=== PATIENT | male | born 1930 | race Caucasian/White ===

== ENCOUNTER → 2018-04-03 | Outpatient (CLI) | payer MEDICARE ==
[~2018-04-03] VITALS: Ht 165.1 cm; Wt 79.4 kg
[~2018-04-03] MED LIST: DEXAMETHASONE 10 MG/ML (DECADRON) 1 ML VIAL ONE
[2018-04-03 15:27] VITALS: BP 150/78
[2018-04-03 15:50] VITALS: BP 162/76
--- NOTE | 2018-04-03 19:03 | OPERATIVE REPORT ---
DATE OF SERVICE: 04/03/2018 DIAGNOSIS: Cervical spondylosis. PROCEDURE: Fluoroscopic-guided facet medial branch block, right. PROCEDURE IN DETAIL: After obtaining informed consent from the patient, the patient's chart was reviewed. The patient was then brought to the procedure room and placed in prone position. Time-out was performed. The area and the right neck, upper back, lower back was prepped with antiseptic solution and under fluoroscopic guidance, the patient's C4, C5, C6, and C7 area was examined and the facet joints listed above were identified. C4, C5, C6, and C7 was identified under fluoroscopy. A 22-gauge 3-1/2 inch spinal needle was inserted and advanced under fluoroscopy down to the area where the pedicle and the transverse process meet and approximately 1 mL of 1% lidocaine was injected at this level. This was then repeated for the remainder of the levels stated above. Afterwards, the needle was removed. Band-Aids were applied to all sites and the patient tolerated the procedure well and was taken to the recovery area in stable condition. COMPLICATIONS: None. Job ID: [id number] DocumentID: [id number] Dictated Date: 04/03/2018 15:47:23 Cost Coordinator Date: 04/03/2018 19:03:25 Dictated By: ELO SHELBY DO
== END ==
LOC: CARD 15:10
PROVIDERS: ATTEND Pain Medicine Interventional Pain Medicine
DX: M47.812 Spondylosis without myelopathy or radiculopathy, cervical region (principal)
CPT/HCPCS: 64490; 64491; 64492

== ENCOUNTER 2019-01-11 11:33 | Emergency (ER) | payer MEDICARE ==
[~2019-01-11] VITALS: Ht 162.6 cm; Wt 81.6 kg
[2019-01-11 11:38] VITALS: BP 134/75
--- NOTE | 2019-01-11 11:46 | ED Fever ---
History of Present Illness General Stated Complaint: SOB,101 TEMP Source: patient History of Present Illness Date Seen by Provider: Jan 11, 2019 Time Seen by Provider: 11:38 Initial Comments Patient brought in because he is mildly short of breath, has a 101 fever, has a headache, body aches, chills. Symptoms started earlier today. No nausea, vomiting, diarrhea. Patient friend reports that he gets frequent sinus infections. He does not have any urinary symptoms. Allergies and Home Medications Allergies Coded Allergies: No Known Drug Allergies (Unverified , 01/11/19) Patient Home Medication List Home Medication List Reviewed: Yes Review of Systems Review of Systems Constitutional: fever, malaise EENTM: no symptoms reported Respiratory: cough, short of breath Cardiovascular: No chest pain, No palpitations Gastrointestinal: no symptoms reported Genitourinary: no symptoms reported Musculoskeletal: no symptoms reported Skin: no symptoms reported Past Bdrewqk-[id number]-[id number] Hx Past Med/Social Hx: Reviewed Nursing Past Med/Soc Hx Patient Social History Recent Foreign Travel: No (N) Contact w/Someone Who Travel: No (N) Physical Exam Vital Signs - First Documented 01/11/19 11:38 Temp 98.5 Pulse 83 Resp 20 B/P (MAP) 134/75 (94) Pulse Ox 92 O2 Delivery Room Air Capillary Refill : Height: 5'5.00" Weight: 175lbs. 0.0oz. [id number]; 29.1 BMI Method: General Appearance: WD/WN, no apparent distress HEENT: PERRL/EOMI, normal ENT inspection Neck: non-tender, full range of motion Respiratory: chest non-tender, lungs clear Cardiovascular: regular rate, rhythm, no edema Gastrointestinal: normal bowel sounds, non tender, soft Neurologic/Psychiatric: health information internship II-XII nml as tested, no motor/sensory deficits, alert, oriented x 3 Skin: normal color, warm/dry Focused Exam Lactate Level 01/11/19 12:00: Lactic Acid Level 1.21 Lactic Acid Level Laboratory Tests Test 01/11/19 12:00 Lactic Acid Level 1.21 MMOL/L (0.50-2.00) Progress/Results/Core Measures Suspected Sepsis SIRS Temperature: Pulse: Respiratory Rate: Laboratory Tests 01/11/19 12:00: White Blood Count 7.2 Blood Pressure / Mean: 01/11/19 12:00: Lactic Acid Level 1.21 Laboratory Tests 01/11/19 12:00: Creatinine 0.88, Platelet Count 165, Total Bilirubin 0.7 Results/Orders Lab Results Laboratory Tests Test 01/11/19 12:00 Range/Units White Blood Count 7.2 4.3-11.0 10^3/uL Red Blood Count 4.12 L 4.35-5.85 10^6/uL Hemoglobin 14.3 13.3-17.7 G/DL Hematocrit 43 40-54 % Mean Corpuscular Volume 105 H 80-99 FL Mean Corpuscular Hemoglobin 35 H 25-34 PG Mean Corpuscular Hemoglobin Concent 33 32-36 G/DL Red Cell Distribution Width 14.4 10.0-14.5 % Platelet Count 165 130-400 10^3/uL Mean Platelet Volume 11.5 H 7.4-10.4 FL Neutrophils (%) (Auto) 63 42-75 % Lymphocytes (%) (Auto) 22 12-44 % Monocytes (%) (Auto) 13 H 0-12 % Eosinophils (%) (Auto) 0 0-10 % Basophils (%) (Auto) 1 0-10 % Neutrophils # (Auto) 4.5 1.8-7.8 X 10^3 Lymphocytes # (Auto) 1.6 1.0-4.0 X 10^3 Monocytes # (Auto) 1.0 0.0-1.0 X 10^3 Eosinophils # (Auto) 0.0 0.0-0.3 10^3/uL Basophils # (Auto) 0.0 0.0-0.1 10^3/uL Sodium Level 134 L 135-145 MMOL/L Potassium Level 3.7 3.6-5.0 MMOL/L Chloride Level 98 98-107 MMOL/L Carbon Dioxide Level 14 L 21-32 MMOL/L Anion Gap 22 H 5-14 MMOL/L Blood Urea Nitrogen 13 7-18 MG/DL Creatinine 0.88 0.60-1.30 MG/DL Estimat Glomerular Filtration Rate > 60 BUN/Creatinine Ratio 15 Glucose Level 101 70-105 MG/DL Lactic Acid Level 1.21 0.50-2.00 MMOL/L Calcium Level 9.1 8.5-10.1 MG/DL Corrected Calcium 9.0 8.5-10.1 MG/DL Total Bilirubin 0.7 0.1-1.0 MG/DL Aspartate Amino Transf (AST/SGOT) 28 5-34 U/L Alanine Aminotransferase (ALT/SGPT) 20 0-55 U/L Alkaline Phosphatase 49 40-136 U/L Total Protein 6.9 6.4-8.2 GM/DL Albumin 4.1 3.2-4.5 GM/DL Micro Results Microbiology 01/11/19 Influenza Types A,B Antigen (SOHAIL) - Final, Complete My Orders Orders - UYEN MARTINEZ DO Chest Pa/Lat (2 View) (01/11/19 11:41) Cbc With Automated Diff (01/11/19 11:41) Comprehensive Metabolic Panel (01/11/19 11:41) Lactic Acid Analyzer (01/11/19 11:41) Influenza A And B Antigens (01/11/19 11:41) Vital Signs/I&O 01/11/19 11:38 Temp 98.5 Pulse 83 Resp 20 B/P (MAP) 134/75 (94) Pulse Ox 92 O2 Delivery Room Air Capillary Refill : Progress Note : Progress Note A shunt remained stable throughout ER stay. Reviewed and negative labs and x- ray with patient. Likely has a bronchitis. I will treat him with azithromycin for bronchitis. He will be discharged home in stable condition. He should follow up with his primary care doctor 2-3 days for recheck of symptoms and sooner if needed Departure Impression Primary Impression: Upper respiratory infection Qualified Codes: J06.9 - Acute upper respiratory infection, unspecified Additional Impression: Influenza-like symptoms Disposition: 01 HOME, SELF-CARE Condition: Stable Departure-Patient Inst. Decision time for Depature: 13:15 Referrals: LUANNE MOORE MD (PCP/Family) Primary Care Physician Patient Instructions: Acute Bronchitis, Adult (DC) Scripts Azithromycin (Azithromycin) 250 Mg Tablet 250 MG PO UD, #6 TAB TAKE 2 TABLETS ON DAY ONE THEN TAKE 1 TABLET DAILY FOR FOUR MORE DAYS Prov: UYEN MARTINEZ DO 01/11/19 UYEN MARTINEZ DO Jan 11, 2019 11:46
--- NOTE | 2019-01-11 12:23 | Diagnostic Imaging Report ---
INDICATION: Wheezing COMPARISON: None FINDINGS: Frontal and lateral views of the chest demonstrate minimal cardiac enlargement. The lungs are otherwise clear. There is no pneumothorax, effusion or infiltrate. Osseous structures normal. IMPRESSION: Slight cardiac enlargement without pulmonary edema or infiltrate. Dictated by: Dictated on workstation # [id number]
[2019-01-11 12:51] LABS: HEMOGLOBIN 14.3 G/DL (13.3-17.7); MEAN CORPUSCULAR HEMOGLOBIN 35 PG (25-34); WHITE BLOOD COUNT 7.2 10^3/uL (4.3-11.0)
[2019-01-11 12:52] LABS: BASOPHILS % (AUTO) 1 % (0-10); EOSINOPHILS % (AUTO) 0 % (0-10); HEMATOCRIT 43 % (40-54); LYMPHOCYTES # (AUTO) 1.6 X 10^3 (1.0-4.0); LYMPHOCYTES % (AUTO) 22 % (12-44); MEAN CORPUSCULAR HGB CONC 33 G/DL (32-36); MEAN CORPUSCULAR VOLUME 105 FL (80-99); MEAN PLATELET VOLUME 11.5 FL (7.4-10.4); MONOCYTES % (AUTO) 13 % (0-12); NEUTROPHILS # (AUTO) 4.5 X 10^3 (1.8-7.8); NEUTROPHILS % (AUTO) 63 % (42-75); PLATELET COUNT 165 10^3/uL (130-400); RED CELL DISTRIBUTION WIDTH 14.4 % (10.0-14.5)
[2019-01-11 13:09] LABS: CARBON DIOXIDE 14 MMOL/L (21-32); CHLORIDE 98 MMOL/L (98-107); POTASSIUM 3.7 MMOL/L (3.6-5.0); SODIUM 134 MMOL/L (135-145)
[2019-01-11 13:10] LABS: ALANINE AMINOTRANSFERASE 20 U/L (0-55); ALBUMIN 4.1 GM/DL (3.2-4.5); ALKALINE PHOSPHATASE 49 U/L (40-136); BILIRUBIN,TOTAL 0.7 MG/DL (0.1-1.0); BUN/CREATININE RATIO 15; CALCIUM 9.1 MG/DL (8.5-10.1); CREATININE SERUM 0.88 MG/DL (0.60-1.30); GFR ESTIMATED > 60; GLUCOSE 101 MG/DL (70-105); TOTAL PROTEIN 6.9 GM/DL (6.4-8.2)
[2019-01-11] MEDS ORDERED: AZIT250T12 PO (13:17)
[2019-01-11 13:24] VITALS: BP 126/99
== END 2019-01-11 13:36 | disposition home or self-care (01) ==
LOC: EDUNIT# 11:33 → ER FS 11:35
DX: J06.9 Acute upper respiratory infection, unspecified (principal); R06.02 Shortness of breath; R51 Headache
CPT/HCPCS: 36415; 71046; 80053; 83605; 85025; 87804